=== PATIENT | female | born 2000 | race Hispanic/Latino ===

== ENCOUNTER 2018-12-14 12:54 | Outpatient (CLI) | payer OTHER ==
--- NOTE | 2018-12-14 14:43 | RAD ---
RIGHT HAND RADIOGRAPH THREE VIEWS: 12/14/2018 CLINICAL HISTORY: Rheumatoid arthritis. FINDINGS: There is no evidence for fracture or other acute osseous abnormality. Alignment appears anatomic. J oint spaces appear preserved. No erosive changes are seen. Bone mineralization appears normal. IMPRESSION: No evidence for an acute osseous abnormality or significant arthropathy. POS: [facility]
--- NOTE | 2018-12-14 14:46 | RAD ---
LEFT FOOT 3 VIEWS: Date: 12/14/18 HISTORY: Rheumatoid arthritis. Foot pain. FINDINGS: Bone demineralization appears preserved. No bony erosive change or any plain film features of rheumat oid. IMPRESSION: Unremarkable left foot. POS: [facility]
--- NOTE | 2018-12-14 14:49 | RAD ---
LEFT HAND RADIOGRAPHS THREE VIEWS: 12/14/2018 PROVIDED CLINICAL HISTORY: Wrist pain. FINDINGS: There is no evidence for fracture or other acute osseous abnormality. There is negative ulnar varian ce with conspicuous radiocarpal joint space loss and somewhat fragmented/irregular appearance to the triquetrum and lunate. Alignment appears otherwise anatomic. Joint spaces involving the hand appear preserved. No erosive changes involving the hand are identified. IMPRESSION: Negative ulnar variance and prominent radiocarpal joint space loss are noted. Consider dedicated lef t wrist radiographs for further evaluation. The hand appears radiographically unremarkable. POS: [facility]
--- NOTE | 2018-12-14 14:57 | RAD ---
RIGHT FOOT THREE VIEWS: HISTORY: Rheumatoid arthritis. Foot pain. FINDINGS: Bony mineralization appears normal. Joint spaces all appear fairly well preserved. There is some ti ny osteophytic change of the talonavicular joint and what appears to be a talar beak. The subtalar j oint is not well assessed on these images. The possibility that there may be some type of arthritic process or coalition related to the subtalar joints is not excluded. No other abnormal bony features noted. IMPRESSION: Questionable changes of the subtalar joint as described above. If the patient has hindfoot pain or an entity such as coalition or erosive bony change related to rhe umatoid is clinically suspected, CT or MRI may be helpful in further assessment if indicated. POS: [facility]
== END 2018-12-14 12:55 | disposition home or self-care (01) ==
LOC: BICRAD 12:54
PROVIDERS: ATTEND Internal Medicine Rheumatology
DX: M06.9 Rheumatoid arthritis, unspecified (principal)